=== PATIENT | male | born 1965 | race Caucasian/White ===

== ENCOUNTER 2019-11-04 06:55 | Outpatient (CLI) | payer BC, OTHER ==
[2019-11-04 14:01] LABS: #Basophils 0.1 thou/uL (0.0-0.2); #Eosinphils 0.1 thou/uL (0.0-0.7); #Lymphocytes 1.3 thou/uL (1.20-3.40); #Monocytes 0.9 thou/uL (0.11-0.59); #Neutrophils 8.8 thou/uL (1.40-6.50); %Basophils 0.6 % (0.0-1.0); %Eosinophils 1.2 % (0.0-10.0); %Lymphocytes 11.9 % (21.0-51.0); %Neutrophils 78.3 % (42.0-75.0); Hemoglobin 15.1 g/dL (14.0-18.0); Mean Corpuscular HGB CONC 35.5 g/dL (32.0-36.0); Mean Corpuscular Hemoglobin 35.1 pg (27.0-31.0); Mean Corpuscular Volume 99.1 fL (78.0-98.0); Mean Platelet Volume 9.2 fL (7.4-10.4); Platelet Count 156 thou/uL (130-400); RBC Distribution Width 13.6 % (11.5-14.5); Red Blood Cell (RBC) Count 4.28 mill/uL (4.70-6.10); White Blood Cell (WBC) Count 11.2 thou/uL (4.8-10.8)
[2019-11-04 14:49] LABS: Anion Gap 20 mmol/L (10-20); BUN (Urea Nitrogen) 20 mg/dL (8.4-25.7); Calc. Creatinine Clearance 0 mL/min (70-130); Calcium 9.8 mg/dL (7.8-10.44); Carbon Dioxide 23 mmol/L (22-29); Chloride 97 mmol/L (98-107); Estimated GFR-MDRD 61; Glucose 140 mg/dL (70-105); Potassium 3.9 mmol/L (3.5-5.1); Sodium 136 mmol/L (136-145)
[2019-11-05 12:08] LABS: SARS-CoV-2 MS2 Positive; SARS-CoV-2 N Gene Negative; SARS-CoV-2 S Gene Negative; SARS-CoV-2 orf1ab Negative
== END 2019-11-04 06:56 | disposition home or self-care (01) ==
LOC: LABBT 06:55
PROVIDERS: ATTEND Specialist
DX: Z01.818 Encounter for other preprocedural examination (principal); Z11.59 Encounter for screening for other viral diseases; K57.90 Diverticulosis of intestine, part unspecified, without perforation or abscess without bleeding; K43.9 Ventral hernia without obstruction or gangrene; E66.01 Morbid (severe) obesity due to excess calories; Z68.38 Body mass index [BMI] 38.0-38.9, adult
CPT/HCPCS: 80048; 85025; 87635; 93005; 93010; U0003

== ENCOUNTER 2019-11-09 05:53 | Day surgery (SDC) | payer BC ==
[2019-11-03 15:44] VITALS: BMI 38.0
[2019-11-09] MEDS ORDERED: Acetaminophen 500 MG TAB ONE (06:08)
[2019-11-09] MEDS ORDERED: Ketorolac Tromethamine 30 MG/ML VIAL ONE (06:08)
[2019-11-09] MEDS ORDERED: Lidocaine 1% w/Epinephrine 1:100K 20 ML VIAL ONE (06:19)
[2019-11-09] MEDS ORDERED: Bupivacaine 0.25% HCL 30 ML VIAL ONE (06:19)
[2019-11-09] MEDS ORDERED: Fentanyl 100 MCG/2 ML VIAL ONE ×3 (06:50→10:02)
[2019-11-09] MEDS ORDERED: SUGAMMADEX SODIUM 500 MG/5 ML VIAL ONE (06:56)
[2019-11-09] MEDS ORDERED: Ondansetron PF 4 MG/2 ML Vial ONE (15:00)
[2019-11-09] MEDS ORDERED: PROPOFOL 200 MG/20 ML VIAL ONE (15:00)
[2019-11-09] MEDS ORDERED: PHENYLEPHRINE-NS 100 MCG/ML 10 ML SYRINGE ONE (15:00)
[2019-11-09] MEDS ORDERED: Rocuronium Bromide 10 MG/ML (10ML VIAL) ONE (15:00)
[2019-11-09] MEDS ORDERED: Lidocaine 1% PF 5 ML VIAL ONE (15:00)
--- NOTE | 2019-11-10 12:38 | OP ---
DATE OF PROCEDURE: 11/09/2019 PREOPERATIVE DIAGNOSIS: Supraumbilical ventral hernia. POSTOPERATIVE DIAGNOSIS: Supraumbilical ventral hernia. PROCEDURE PERFORMED: Laparoscopic repair of ventral hernia using a 6 cm Ventralex mesh patch. ANESTHESIA: General endotracheal. INDICATIONS: The patient is a 54-year-old morbidly obese white male. He presents with an obvious hernia at the superior aspect of his umbilicus. I have recommended laparoscopic repair of this secondary to the patient's obesity. DESCRIPTION OF OPERATION: Informed consent was obtained, the patient was taken to the operating room, where general endotracheal anesthesia was obtained with the patient in supine position. Abdomen was prepped with ChloraPrep and draped in sterile fashion. Local anesthetic was infiltrated using a mixture of 1% lidocaine with epinephrine and 0.25% Marcaine. A 5 mm left lateral incision was created through which a Veress needle was passed into the peritoneal cavity. Pneumoperitoneum was established using carbon dioxide up to pressure of 15 mmHg. A 5 mm trocar port was passed through the same incision. Laparoscopic camera was passed through this port. Under direct vision, 2 additional ports were placed including a 15 mm left upper quadrant port and a 5 mm left lower quadrant port. Attention was then turned to the anterior abdominal wall. The patient had an easily visualized supraumbilical hernia. When measured this appeared to be between 2.5 and 3 cm in diameter. I dissected all of the preperitoneal fat beginning from the patient's left side into the hernia defect and across over to the right side. It was also dissected superiorly and inferiorly to give a good section of fascia to which to secure the mesh. Some but not all of the hernia sac was dissected during the course of preperitoneal fat removal. The fascial defect was then closed with three sutures of 0 Ethibond, placed in interrupted fashion and using the GraNee needle. The defect was completely closed with these three sutures. I then obtained a 6.3 cm Ventralex mesh patch and trimmed the tails from this. I placed four quadrant sutures of 0 Ethibond on the back table and then passed the mesh into the abdominal cavity. The mesh was withdrawn and snug against the anterior abdominal wall using the GraNee needle to pull the stay sutures. Once these were appropriately located and there was excellent coverage of the defect, the sutures were secured to give transfascial fixation. I then utilized the secure strap device to secure the mesh patch circumferentially and within its internal aspect as well. I then was able to take the peritoneum with the preperitoneal fat and pull this in a fashion so as to cover the mesh patch in order to minimize adhesive problems with this area. This was secured with 3 interrupted sutures of 2-0 Vicryl. The mesh patch was no longer visualized when these were placed. The fascial defect at the 15 mm port site was closed with 0 Vicryl suture using a GraNee needle. All ports and instruments were removed under direct vision. Pneumoperitoneum was carefully evacuated. A 0.25% Marcaine with epinephrine substrates port site. Skin edges approximated with 4-0 Monocryl subcuticular sutures. Dermabond was placed externally. Attention was then turned to the umbilicus. Although it was nicely inverted, I decided to place a compression dressing at this location to minimize chance of any seroma formation superiorly. Cotton balls were placed within the umbilicus and a Tegaderm dressing was secured using Mastisol and the air within the cotton balls was aspirated. There was excellent compression upon the umbilicus. The patient tolerated the procedure well and was taken to recovery in stable condition. Job ID: [id number]
== END 2019-11-09 11:10 | disposition home or self-care (01) ==
LOC: SDC 05:53
PROVIDERS: ATTEND Specialist
PROC: 0WUF4JZ Supplement Abdominal Wall with Synthetic Substitute, Percutaneous Endoscopic Approach (ICD-10-PCS; principal; 2019-11-09)
DX: K43.9 Ventral hernia without obstruction or gangrene (principal); E11.9 Type 2 diabetes mellitus without complications; I10 Essential (primary) hypertension; E66.01 Morbid (severe) obesity due to excess calories; Z68.38 Body mass index [BMI] 38.0-38.9, adult; Z79.84 Long term (current) use of oral hypoglycemic drugs; Z79.899 Other long term (current) drug therapy; Z87.891 Personal history of nicotine dependence
CPT/HCPCS: J0690; J1885; J2001; J2405; J2704; J3010; S0020

== ENCOUNTER 2019-11-13 14:23 | Emergency (ER) | payer BC ==
[~2019-11-13 14:23] MED LIST: Iopamidol-370 76% 500 ML 1 ML ONE
[2019-11-13 15:32] LABS: #Eosinphils 0.1 thou/uL (0.0-0.7); #Lymphocytes 1.7 thou/uL (1.20-3.40); #Monocytes 1.1 thou/uL (0.11-0.59); #Neutrophils 7.2 thou/uL (1.40-6.50); %Basophils 0.5 % (0.0-1.0); %Eosinophils 1.2 % (0.0-10.0); %Lymphocytes 16.9 % (21.0-51.0); %Monocytes 10.8 % (0.0-10.0); %Neutrophils 70.6 % (42.0-75.0); Hemoglobin 13.2 g/dL (14.0-18.0); Mean Corpuscular HGB CONC 34.5 g/dL (32.0-36.0); Mean Corpuscular Hemoglobin 34.3 pg (27.0-31.0); Mean Corpuscular Volume 99.5 fL (78.0-98.0); Mean Platelet Volume 8.7 fL (7.4-10.4); Platelet Count 316 thou/uL (130-400); RBC Distribution Width 13.1 % (11.5-14.5); Red Blood Cell (RBC) Count 3.83 mill/uL (4.70-6.10); White Blood Cell (WBC) Count 10.2 thou/uL (4.8-10.8)
[2019-11-13 15:52] LABS: ALT (SGPT) 38 U/L (8-55); AST (SGOT) 51 U/L (5-34); Albumin 4.2 g/dL (3.5-5.0); Alkaline Phosphatase 67 U/L (40-110); Anion Gap 19 mmol/L (10-20); BUN (Urea Nitrogen) 8 mg/dL (8.4-25.7); Bilirubin, Total 0.7 mg/dL (0.2-1.2); Calc. Creatinine Clearance 0 mL/min (70-130); Calcium 9.1 mg/dL (7.8-10.44); Carbon Dioxide 24 mmol/L (22-29); Chloride 102 mmol/L (98-107); Estimated GFR-MDRD Greater than 90; Globulin 3.5 g/dL (2.4-3.5); Glucose 91 mg/dL (70-105); Potassium 3.6 mmol/L (3.5-5.1); Protein, Total 7.7 g/dL (6.0-8.3); Sodium 141 mmol/L (136-145)
--- NOTE | 2019-11-13 17:22 | CT ---
CT ABDOMEN AND PELVIS WITH IV CONTRAST 11/13/19 PROVIDED CLINICAL HISTORY: Status post laparoscopic hernia repair with fluid leaking from the surgical site. FINDINGS: Comparison is made with the study dated 10/21/19 from the [facility]. The visualized lung bases are free of significant opacity. The solid abdominal organs demonstrate an unremarkable CT appearance. There is reticulation of the subcutaneous adipose layer and noncircumscribed fluid density seen withi n the paraumbilical region compatible with the provided clinical history of recent umbilical hernia r epair. There is no evidence for focal fluid collection to suggest abscess. There is no significant intraperitoneal fat stranding, free fluid or free air apparent. There is no b owel dilatation. Occasional vascular calcifications are seen. The osseous structures demonstrate no concerning lytic or blastic lesions. IMPRESSION: Postoperative changes involving the umbilical region without evidence for focal fluid collection to s uggest abscess. Correlate with concerns for cellulitis. POS: [facility]
[2019-11-13 17:48] LABS: Bacteria/HPF None Seen HPF (None Seen); Bilirubin Negative (Negative); Blood, Urine Negative (Negative); Clarity Clear (Clear); Glucose, Urine (Dipstick) Normal (Negative); Ketone, Urine 20 mg/dL (Negative); Leukocyte Negative Leu/uL (Negative); Nitrite Negative (Negative); Protein, Urine (Dipstick) 30 mg/dL (Neg-Trace); Squamous Epithelial 0-3 HPF (0-3); Urobilinogen Normal mg/dL (Less than 2); WBC/HPF 0-3 HPF (0-3); pH, Urine 6.5 (5.0-9.0)
[2019-11-13 17:49] LABS: Specific Gravity, Urine Greater than 1.060 (1.002-1.036)
[2019-11-13 18:20] LABS: Lactic Acid 1.2 mmol/L (0.5-2.2)
== END 2019-11-13 19:03 | disposition home or self-care (01) ==
LOC: ERS 14:23
DX: L76.34 Postprocedural seroma of skin and subcutaneous tissue following other procedure (principal); E11.9 Type 2 diabetes mellitus without complications; E78.5 Hyperlipidemia, unspecified; E78.00 Pure hypercholesterolemia, unspecified; I10 Essential (primary) hypertension; Z79.84 Long term (current) use of oral hypoglycemic drugs; Z79.899 Other long term (current) drug therapy
CPT/HCPCS: 36415; 74177; 80053; 81003; 81015; 83605; 85025; 87040; 87070; 87205; Q9967

== ENCOUNTER 2021-01-17 10:42 | Emergency (ER) | payer BC ==
[2021-01-17 12:20] LABS: #Lymphocytes 1.1 thou/uL (1.20-3.40); #Monocytes 0.8 thou/uL (0.11-0.59); #Neutrophils 5.5 thou/uL (1.40-6.50); %Basophils 0.4 % (0.0-1.0); %Lymphocytes 14.3 % (21.0-51.0); %Neutrophils 74.2 % (42.0-75.0); Hemoglobin 14.3 g/dL (14.0-18.0); Mean Corpuscular HGB CONC 35.1 g/dL (32.0-36.0); Mean Corpuscular Hemoglobin 36.2 pg (27.0-31.0); Mean Platelet Volume 9.9 fL (7.4-10.4); Platelet Count 141 thou/uL (130-400); Red Blood Cell (RBC) Count 3.94 mill/uL (4.70-6.10); White Blood Cell (WBC) Count 7.4 thou/uL (4.8-10.8)
[2021-01-17] MEDS ORDERED: Acetaminophen 500 MG TAB ONE (12:21)
[2021-01-17 12:33] LABS: Acetaminophen Less than 6.0 mcg/mL (10.0-30.0); Alcohol Less than 10 mg/dL (Less than 10); Salicylate Less than 8.0 mg/dL (15.0-30.0)
[2021-01-17 12:35] LABS: ALT (SGPT) 29 U/L (8-55); AST (SGOT) 98 U/L (5-34); Albumin 3.9 g/dL (3.5-5.0); Alkaline Phosphatase 67 U/L (40-110); Anion Gap 15 mmol/L (10-20); BUN (Urea Nitrogen) 27 mg/dL (8.4-25.7); Bilirubin, Total 1.4 mg/dL (0.2-1.2); Calc. Creatinine Clearance 0 mL/min (70-130); Calcium 8.8 mg/dL (7.8-10.44); Carbon Dioxide 19 mmol/L (22-29); Chloride 95 mmol/L (98-107); Globulin 3.9 g/dL (2.4-3.5); Glucose 125 mg/dL (70-105); Potassium 3.9 mmol/L (3.5-5.1); Protein, Total 7.8 g/dL (6.0-8.3); Sodium 125 mmol/L (136-145)
== END 2021-01-17 17:30 | disposition home or self-care (01) ==
LOC: ERS 10:42
DX: U07.1 COVID-19 (principal); R41.82 Altered mental status, unspecified; E78.5 Hyperlipidemia, unspecified; E78.00 Pure hypercholesterolemia, unspecified; I10 Essential (primary) hypertension; Z87.891 Personal history of nicotine dependence
CPT/HCPCS: 36415; 70450; 71045; 80053; 80307; 84443; 84484; 85025; 93005

== ENCOUNTER 2021-03-13 13:40 | Outpatient (CLI) | payer BC | END 2021-03-13 13:41 | disposition home or self-care (01) | LOC: EEG 13:40 | PROVIDERS: ATTEND Psychiatry & Neurology Neurology | DX: G62.9 Polyneuropathy, unspecified (principal) | CPT/HCPCS: 95816 ==